=== PATIENT | female | born 1950 | race Caucasian/White ===

== ENCOUNTER 2017-07-17 11:02 | Emergency (ER) | payer OTHER ==
[2017-07-17 11:19] VITALS: BP 128/93; PULSE 80; RESP 16; TEMP 97.3; O2SAT 97
--- NOTE | 2017-07-17 11:19 | EDPHY ---
H & P Time Seen by Provider: 07/17/17 11:14 HPI/ROS: CHIEF COMPLAINT: Left rib pain HISTORY OF PRESENT ILLNESS: Patient is a 67-year-old female fell in her driveway this morning. She fell onto outstretched hand. She denies hand wrist or arm pain but states that as she was falling she twisted dramatically to avoid hitting her hip on the ground. The twist caused immediate pain in her left ribs. She did not impact her ribs. She denies shortness of breath or chest pain but states that when she twists or bends over she has significant left-sided rib pain. She states that this happened to her once before when she was pushing a heavy cart. REVIEW OF SYSTEMS: Constitutional: denies: chills, fever, recent illness, recent injury EENTM: denies: blurred vision, double vision, nose congestion Respiratory: denies: cough, shortness of breath Cardiac: denies: chest pain, irregular heart rate, lightheadedness, palpitations Gastrointestinal/Abdominal: denies: abdominal pain, diarrhea, nausea, vomiting, blood streaked stools Genitourinary: denies: dysuria, frequency, hematuria, pain Musculoskeletal: See HPI Skin: denies: lesions, rash, jaundice, bruising Neurological: denies: headache, numbness, paresthesia, tingling, dizziness, weakness Hematologic/Lymphatic: denies: blood clots, easy bleeding, easy bruising Immunologic/allergic: denies: HIV/AIDS, transplant EXAM: GENERAL: Well-appearing, well-nourished and in no acute distress. HEAD: Atraumatic, normocephalic. EYES: Pupils equal round and reactive to light, extraocular movements intact, sclera anicteric, conjunctiva are normal. ENT: TMs normal, nares patent, oropharynx clear without exudates. Moist mucous membranes. NECK: Normal range of motion, supple without lymphadenopathy or JVD. LUNGS: Tenderness to left rib page with palpation and pain with movement. Breath sounds clear to auscultation bilaterally and equal. No wheezes rales or rhonchi. HEART: Regular rate and rhythm without murmurs, rubs or gallops. ABDOMEN: Soft, nontender, normoactive bowel sounds. No guarding, no rebound. No masses appreciated. BACK: No CVA tenderness, no spinal tenderness, step-offs or deformities EXTREMITIES: Normal range of motion, no pitting or edema. No clubbing or cyanosis. NEUROLOGICAL: Cranial nerves II through XII grossly intact. Normal speech, normal gait. 5/5 strength, normal movement in all extremities, normal sensation PSYCH: Normal mood, normal affect. SKIN: Warm, dry, normal turgor, no visible rashes or lesions. Source: Patient, Family Exam Limitations: No limitations - Medical/Surgical History Hx Asthma: No Hx Chronic Respiratory Disease: No Hx Diabetes: No Hx Cardiac Disease: No Hx Renal Disease: No Hx Cirrhosis: No Hx Alcoholism: No - Family History Significant Family History: No pertinent family hx - Social History Alcohol Use: Sober Drug Use: None Constitutional: Initial Vital Signs Temperature (C) 36.3 C 07/17/17 11:11 Heart Rate 80 07/17/17 11:11 Respiratory Rate 16 07/17/17 11:11 Blood Pressure 128/93 H 07/17/17 11:11 O2 Sat (%) 97 07/17/17 11:11 O2 Delivery Mode Room Air Allergies/Adverse Reactions: Penicillins Allergy (Severe, Verified 07/17/17 11:09) Hives codeine Allergy (Intermediate, Verified 07/17/17 11:09) dizziness and nausea Home Medications: Medication Instructions Recorded Multi-Vitamin Daily 07/17/17 Omeprazole 07/17/17 Probiotic 07/17/17 Medical Decision Making - Diagnostics Imaging Results: Imaging Impressions Ribs w/Chest X-Ray 07/17/17 11:18 Impression: 1. Negative left ribs and chest. X-ray: chest x-ray was obtained. I viewed the images myself on the PACS system. My interpretation of the images is: Negative. The radiologist interpretation is pending. ED Course/Re-evaluation: 11:55 a.m. we discussed the x-ray results. The patient is relieved. We discussed pain control. She would like to try Jesus wrap for pain which has been a shown safe and effective recently. She will remove it if is not working. We discussed follow-up and indications for returning. Differential Diagnosis: Partial list of the Differential diagnosis considered include but were not limited to; rib fracture, muscle strain and although unlikely based on the history and physical exam, I also considered acute coronary disease, pneumothorax, dissection. I discussed these differential diagnoses and the plan with the patient as well as the usual and expected course. The patient understands that the diagnosis is provisional and that in medicine we are not always correct and that further workup is often warranted. Usual and customary warnings were given. All of the patient's questions were answered. The patient was instructed to return to the emergency department should the symptoms at all worsen or return, otherwise to followup with the physician as we discussed. Departure - Departure Disposition: Home, Routine, Self-Care Clinical Impression: Rib injury Condition: Fair Instructions: Rib Contusion (ED) Additional Instructions: Take ibuprofen for pain as we discussed. You may use the Jesus wrap if needed for pain. Referrals: NONE *PRIMARY CARE P,. [Primary Care Provider] - As per Instructions
== END 2017-07-17 12:00 | disposition home or self-care (01) ==
LOC: CED 11:02
DX: S29.9XXA Unspecified injury of thorax, initial encounter (principal); W19.XXXA Unspecified fall, initial encounter; Y92.194 Driveway of other specified residential institution as the place of occurrence of the external cause
CPT/HCPCS: 71101-PO

== ENCOUNTER → 2019-01-04 | Outpatient (CLI) | payer OTHER | LOC: EMCIMAGING 09:21 | PROVIDERS: ATTEND Family Medicine | DX: Z12.31 Encounter for screening mammogram for malignant neoplasm of breast (principal) | CPT/HCPCS: 77067-PN ==

== ENCOUNTER → 2019-01-20 | Outpatient (CLI) | payer OTHER | LOC: CIMAGING 12:25 | PROVIDERS: ATTEND Family Medicine | DX: R09.81 Nasal congestion (principal) | CPT/HCPCS: 70220-PO ==